=== PATIENT | male | born 1980 | race African-American/Black ===

== ENCOUNTER 2017-06-28 02:17 | Emergency (ER) | payer SELFPAY ==
[~2017-06-28] VITALS: Ht 182.9 cm; Wt 107.0 kg
[~2017-06-28 02:17] MED LIST: ERY-TAB333 MG OR
[2017-06-28] MEDS ORDERED: BACLOFEN10 MG PO (02:26)
[2017-06-28] MEDS ORDERED: IBUPROFEN600 MG PO (03:49)
[2017-06-28] MEDS ORDERED: ORPHENADRINE100 MG PO (03:49)
[2017-06-28 04:00] VITALS: BP 166/110
== END 2017-06-28 04:00 | disposition home or self-care (01) | DRG 563 ==
LOC: ED 02:17
DX: S46.912A Strain of unspecified muscle, fascia and tendon at shoulder and upper arm level, left arm, initial encounter (principal); M25.512 Pain in left shoulder

== ENCOUNTER 2017-08-12 18:37 | Emergency (ER) | payer SELFPAY ==
[~2017-08-12] VITALS: Ht 182.9 cm; Wt 106.4 kg
[~2017-08-12 18:37] MED LIST changes: +BACLOFEN10 MG PO; +IBUPROFEN600 MG PO; +ORPHENADRINE100 MG PO
[2017-08-12 20:03] LABS: HEMATOCRIT 46.5 % (39.0-50.0); HEMOGLOBIN 15.6 g/dl (14.0-18.0); IMMATURE GRANULOCYTES 0.2 % (0.0-1.0); MEAN CELL VOLUME 88.4 fL CALC (80.0-100.0); MEAN CORPUSCULAR HGB 29.7 pG CALC (26.0-32.0); MEAN CORPUSCULAR HGB CONC 33.5 g/L CALC (32.0-36.0); NEUT# 6.5 thou/uL (1.82-7.42); RED BLOOD COUNT 5.26 mill/uL (4.70-6.10); RED CELL DISTRI WIDTH 13.1 % (11.5-15.5)
[2017-08-12 20:10] LABS: ALKALINE PHOSPHATASE 84 u/l (38-126); AMYLASE 75 u/l (30-110); ANION GAP 16 (6-22 (CALC)); BILIRUBIN, TOTAL 1.2 mg/dL (0.0-1.4); BUN 15 mg/dL (9-20); BUN/CREATININE RATIO 13 (12-20 (CALC)); CALCIUM 9.4 mg/dL (8.4-10.2); CARBON DIOXIDE 27 mmol/l (22-30); CHLORIDE 101 mmol/l (95-108); CREATININE 1.1 mg/dL (0.7-1.3); GFR > 60 ML/MIN (>=60 (CALC)); GFR FOR AFR.AMER. > 60 ML/MIN (>=60 (CALC)); GLUCOSE 104 mg/dL (75-110); LIPASE 45 u/l (23-300); POTASSIUM 3.7 mmol/l (3.5-5.1); SGOT/AST 40 u/l (17-59); SGPT/ALT 49 u/l (21-72); SODIUM 140 mmol/l (137-146); TOTAL PROTEIN 8.8 g/dL (6.3-8.2)
[2017-08-12 20:23] LABS: INFLUENZA A NONE DETECTED (NONE DETECT); INFLUENZA B NONE DETECTED (NONE DETECT)
[2017-08-12 20:34] VITALS: BP 167/108
== END 2017-08-12 20:48 | disposition home or self-care (01) | DRG 556 ==
LOC: ED 18:37
PROVIDERS: Emergency Medicine
DX: M79.1 Myalgia (principal)

== ENCOUNTER 2018-04-29 06:35 | Emergency (ER) | payer OTHER ==
[~2018-04-29] VITALS: Ht 182.9 cm; Wt 100.0 kg
[2018-04-29] MEDS ORDERED: TORADOL PO (07:25)
[2018-04-29] MEDS ORDERED: FLEXERIL PO (07:25)
[2018-04-29] MEDS ORDERED: LISINOP/HCTZ1 TA1 PO (07:25)
[2018-04-29 07:50] VITALS: BP 155/97
== END 2018-04-29 07:50 | disposition home or self-care (01) | DRG 563 ==
LOC: ED 06:35
DX: S29.012A Strain of muscle and tendon of back wall of thorax, initial encounter (principal); S39.012A Strain of muscle, fascia and tendon of lower back, initial encounter; M54.5 Low back pain; M54.6 Pain in thoracic spine; I10 Essential (primary) hypertension; X50.0XXA Overexertion from strenuous movement or load, initial encounter; Y93.89 Activity, other specified; Y92.89 Other specified places as the place of occurrence of the external cause; Y99.0 Civilian activity done for income or pay

== ENCOUNTER 2019-02-16 08:32 | Emergency (ER) | payer SELFPAY ==
[~2019-02-16] VITALS: Ht 182.9 cm; Wt 100.0 kg
[~2019-02-16 08:32] MED LIST changes: +FLEXERIL PO; +LISINOP/HCTZ1 TA1 PO; +TORADOL PO
[2019-02-16 09:29] LABS: HEMATOCRIT 40.4 % (39.0-50.0); HEMOGLOBIN 13.5 g/dl (14.0-18.0); IMMATURE GRANULOCYTES 0.2 % (0.0-5.0); MEAN CELL VOLUME 88.6 fL CALC (80.0-100.0); MEAN CORPUSCULAR HGB 29.6 pG CALC (26.0-32.0); MEAN CORPUSCULAR HGB CONC 33.4 g/L CALC (32.0-36.0); NEUT# 3.06 thou/uL (1.82-7.42); RED BLOOD COUNT 4.56 mill/uL (4.70-6.10)
[2019-02-16 09:51] LABS: ALBUMIN 4.4 g/dL (3.2-5.0); ALKALINE PHOSPHATASE 87 u/l (38-126); ANION GAP 12 (6-22 (CALC)); BUN 11 mg/dL (9-20); BUN/CREATININE RATIO 11 (12-20 (CALC)); CARBON DIOXIDE 27 mmol/l (22-30); CHLORIDE 106 mmol/l (95-108); GFR > 60 ML/MIN (>=60 (CALC)); GFR FOR AFR.AMER. > 60 ML/MIN (>=60 (CALC)); SGOT/AST 39 u/l (17-59); SODIUM 140 mmol/l (137-146); TOTAL PROTEIN 7.6 g/dL (6.3-8.2)
[2019-02-16 09:53] LABS: BILIRUBIN, TOTAL 0.5 mg/dL (0.0-1.4)
[2019-02-16 10:41] LABS: BARBITURATES NEGATIVE (NEGATIVE); COCAINE POSITIVE (NEGATIVE); METHADONE NEGATIVE (NEGATIVE); OXCYCODONE NEGATIVE (NEGATIVE); TETRAHYDROCANNABIONOL POSITIVE (NEGATIVE); TRICYLIC ANTIDEPRESSANTS NEGATIVE (NEGATIVE)
[2019-02-16 10:45] LABS: URINE BILIRUBIN - DIPSTICK NEGATIVE (NEGATIVE); URINE BLOOD DIPSTICK NEGATIVE (NEGATIVE); URINE COLOR YELLOW; URINE GLUCOSE - DIPSTICK NEGATIVE (NEGATIVE); URINE KETONE NEGATIVE (NEGATIVE); URINE LEUK ESTERASE NEGATIVE (NEGATIVE); URINE NITRITE - DIPSTICK NEGATIVE (Negative); URINE PH 6.5 (4.5-8.0); URINE PROTEIN - DIPSTICK NEGATIVE (NEG-TRACE); URINE SPECIFIC GRAVITY 1.015; URINE UROBILINOGEN - DIPSTICK 0.2 E.U./dL (0.2)
[2019-02-16] MEDS ORDERED: LISINOPRIL20 MG PO (11:09)
[2019-02-16 11:25] VITALS: BP 156/100
== END 2019-02-16 11:30 | disposition home or self-care (01) | DRG 305 ==
LOC: ED 08:32
PROVIDERS: Emergency Medicine
DX: I10 Essential (primary) hypertension (principal); F14.90 Cocaine use, unspecified, uncomplicated; F12.90 Cannabis use, unspecified, uncomplicated

== ENCOUNTER 2019-07-17 18:18 | Emergency (ER) | payer SELFPAY ==
[~2019-07-17] VITALS: Ht 182.9 cm; Wt 100.0 kg
[~2019-07-17 18:18] MED LIST changes: +LISINOPRIL20 MG PO
[2019-07-17] MEDS ORDERED: AMOXICILLIN500 MG PO (18:54)
[2019-07-17] MEDS ORDERED: LORTAB 1010 MG PO (18:54)
[2019-07-17 19:10] VITALS: BP 158/78
== END 2019-07-17 19:10 | disposition home or self-care (01) | DRG 159 ==
LOC: ED 18:18
DX: K04.7 Periapical abscess without sinus (principal); K03.81 Cracked tooth; I10 Essential (primary) hypertension

== ENCOUNTER 2020-05-04 21:55 | Emergency (ER) | payer OTHER ==
[~2020-05-04] VITALS: Ht 182.9 cm; Wt 113.0 kg
[~2020-05-04 21:55] MED LIST changes: +AMOXICILLIN500 MG PO; +LORTAB 1010 MG PO
[2020-05-04] MEDS ORDERED: TORADOL PO (22:16)
[2020-05-04 22:35] VITALS: BP 153/99
== END 2020-05-04 22:43 | disposition home or self-care (01) ==
LOC: ED 21:55
DX: S39.012A Strain of muscle, fascia and tendon of lower back, initial encounter (principal); X50.0XXA Overexertion from strenuous movement or load, initial encounter; Y93.H2 Activity, gardening and landscaping

== ENCOUNTER 2020-10-30 17:12 | Emergency (ER) | payer OTHER ==
[~2020-10-30] VITALS: Ht 182.9 cm; Wt 108.0 kg
[2020-10-30 19:02] VITALS: BP 191/110
== END 2020-10-30 19:10 | disposition home or self-care (01) ==
LOC: ED 17:12
DX: R68.83 Chills (without fever) (principal); R52 Pain, unspecified; I10 Essential (primary) hypertension; Z20.822 Contact with and (suspected) exposure to COVID-19

== ENCOUNTER 2022-04-04 17:02 | Emergency (ER) | payer OTHER ==
[2022-04-04] VITALS (33 sets, daily range): BP systolic 130–167; BP diastolic 94–113
[~2022-04-04] VITALS: Ht 182.9 cm; Wt 109.1 kg
[2022-04-04 17:39] LABS: HEMATOCRIT 44.8 % (39.0-50.0); HEMOGLOBIN 14.8 g/dl (14.0-18.0); IMMATURE GRANULOCYTES 0.1 % (0.0-5.0); MEAN CORPUSCULAR HGB 29.7 pG CALC (26.0-32.0); NEUT# 2.94 thou/uL (1.82-7.42); RED BLOOD COUNT 4.98 mill/uL (4.70-6.10)
[2022-04-04 17:56] LABS: INTERNATIONAL NORMALIZED RATIO 1.5 RATIO (0.7-1.3); PROTHROMBIN TIME 14.9 SECONDS (9.0-12.5)
[2022-04-04 17:58] LABS: ALBUMIN 4.8 g/dL (3.2-5.0); ALKALINE PHOSPHATASE 79 u/l (38-126); ANION GAP 12 (6-22 (CALC)); BUN 11 mg/dL (9-20); BUN/CREATININE RATIO 10 (12-20 (CALC)); CARBON DIOXIDE 26 mmol/l (22-30); CHLORIDE 104 mmol/l (95-108); CREATININE 1.1 mg/dL (0.7-1.3); GFR FOR AFR.AMER. > 60 ML/MIN (>=60 (CALC)); GFR OTHER RACES > 60 ML/MIN (>=60 (CALC)); LIPASE 114 u/l (23-300); POTASSIUM 4.2 mmol/l (3.5-5.1); SGOT/AST 37 u/l (17-59); SODIUM 138 mmol/l (137-146); TOTAL PROTEIN 8.8 g/dL (6.3-8.2)
[2022-04-04 18:10] LABS: MYOGLOBIN 47 ng/mL (0 - 121)
[2022-04-04 18:14] LABS: BILIRUBIN, TOTAL 0.9 mg/dL (0.0-1.4)
== END 2022-04-04 20:35 | disposition left against medical advice (07) ==
LOC: ED 17:02
PROVIDERS: Nurse Practitioner
DX: R07.9 Chest pain, unspecified (principal); I10 Essential (primary) hypertension; Z91.19 Patient's noncompliance with other medical treatment and regimen

== ENCOUNTER 2023-02-08 20:23 | Emergency (ER) | payer OTHER ==
[~2023-02-08] VITALS: Ht 182.9 cm; Wt 99.0 kg
[2023-02-08 20:59] VITALS: BP 170/122
[2023-02-08 21:00] VITALS: BP 151/108
[2023-02-08 21:15] VITALS: BP 156/110
[2023-02-08 21:30] VITALS: BP 160/113
[2023-02-08] MEDS ORDERED: NAPROXEN500 MG PO (21:31)
[2023-02-08 21:45] VITALS: BP 160/108
== END 2023-02-08 22:03 | disposition home or self-care (01) ==
LOC: ED 20:23
DX: S33.5XXA Sprain of ligaments of lumbar spine, initial encounter (principal); I10 Essential (primary) hypertension; X50.0XXA Overexertion from strenuous movement or load, initial encounter

== ENCOUNTER 2024-10-15 10:42 | Emergency (ER) | payer OTHER ==
[~2024-10-15] VITALS: Ht 182.9 cm; Wt 110.0 kg
[~2024-10-15 10:42] MED LIST changes: +NAPROXEN500 MG PO
[2024-10-15 12:38] VITALS: BP 167/115
== END 2024-10-15 12:40 | disposition home or self-care (01) ==
LOC: ED 10:42
DX: J11.1 Influenza due to unidentified influenza virus with other respiratory manifestations (principal); I10 Essential (primary) hypertension; Z20.822 Contact with and (suspected) exposure to COVID-19